=== PATIENT | male | born 1960 | race Caucasian/White ===

== ENCOUNTER 2017-01-05 08:37 | Day surgery (SDC) | payer MEDICARE, OTHER ==
[~2017-01-05 08:37] MED LIST: ACCU-CHEK AVIVA PLU1 XX; ADVAIR DISK1 INH; ALBUTEROL SUL0.083 % IN; AMLODIPINE10 MG PO; ATROVENT I0.5 MG/VIA IN; BACTRIM DS1 TAB PO; BLOOD GLUCOSE TEST S SC; BUPROPION300 MG PO; CEPHALEXIN500 MG PO; CHANTIX CONTINUI1 MG PO; CHANTIX STARTIN0.5 & PO; CHANTIX1 MG PO; CIPRO XR500 M2 PO; CLINDAMYCIN300 M1 PO; COMBIVENT RESPIMAT IN; EQ NICOTIN21 MG/24 H TD; FLEXERIL PO; GABAPENTIN300 MG PO; GLYBURIDE5 M1 PO; INSULIN SY SC; INSULIN XX; IPRATROPIU0.5 MG/3 M IN; IPRATROPIUM/ IN; KAYEXALATE15 GM/60 M PO; LANTUS100 MG/ML SC; LISINOPRIL20 MG PO; LISINOPRIL40 MG PO; LYRICA75 MG PO; METFORMIN1000 MG PO; METFORMIN500 MG PO; MONITOR SC; NAPROSYN500 MG PO; NEBULIZE1 INH; NEURONTIN800 MG PO; PERCOCET 10/31 COMBO PO; PREDNISONE10 MG PO; PREVASTATIN PO; PROAIR HFA IN; PROVENTIL0.083 % IN; QVAR80 MCG IN; SPIRIVA HANDIHALER IN; SYMBICORT1 AE1 IN; [UNRECOGNIZED DRUG - SUPPLY] XX
[2017-01-05 11:01] VITALS: BP 119/61
== END 2017-01-05 11:25 | disposition home or self-care (01) ==
LOC: ENDO 08:37 → ORM 13:00 → ENDO 13:10 → ORM 19:30
PROVIDERS: ATTEND Internal Medicine Gastroenterology
PROC: 0DB48ZX Excision of Esophagogastric Junction, Via Natural or Artificial Opening Endoscopic, Diagnostic (ICD-10-PCS; principal; 2017-01-05)
DX: R10.13 Epigastric pain (principal); I85.00 Esophageal varices without bleeding; K21.0 Gastro-esophageal reflux disease with esophagitis; K44.9 Diaphragmatic hernia without obstruction or gangrene; K22.70 Barrett's esophagus without dysplasia; K29.70 Gastritis, unspecified, without bleeding; B19.20 Unspecified viral hepatitis C without hepatic coma; I10 Essential (primary) hypertension; E11.9 Type 2 diabetes mellitus without complications; J44.9 Chronic obstructive pulmonary disease, unspecified; Z98.84 Bariatric surgery status

== ENCOUNTER 2017-04-27 05:44 | Day surgery (SDC) | payer MEDICARE, MEDICAID ==
[~2017-04-27] VITALS: Ht 177.8 cm; Wt 120.2 kg
[~2017-04-27 05:44] MED LIST changes: +LORAZEPAM0.5 MG PO; +MOTRIN800 MG PO; +OMEPRAZOLE10 MG PO; +VENTOLIN HFA IN
[2017-04-27] MEDS ORDERED: PERCOCET 10/31 COMBO PO (09:28)
[2017-04-27 11:00] VITALS: BP 135/68
== END 2017-04-27 11:20 | disposition home or self-care (01) ==
LOC: ORM 05:44
PROVIDERS: ATTEND Orthopaedic Surgery
PROC: 0LB14ZZ Excision of Right Shoulder Tendon, Percutaneous Endoscopic Approach (ICD-10-PCS; principal; 2017-04-27)
PROC: 0LS14ZZ Reposition Right Shoulder Tendon, Percutaneous Endoscopic Approach (ICD-10-PCS; 2017-04-27)
PROC: 0RNJ4ZZ Release Right Shoulder Joint, Percutaneous Endoscopic Approach (ICD-10-PCS; 2017-04-27)
DX: M75.111 Incomplete rotator cuff tear or rupture of right shoulder, not specified as traumatic (principal); S43.431A Superior glenoid labrum lesion of right shoulder, initial encounter; M94.211 Chondromalacia, right shoulder; M75.51 Bursitis of right shoulder; X58.XXXA Exposure to other specified factors, initial encounter
CPT/HCPCS: J2710

== ENCOUNTER 2017-08-21 15:10 | Inpatient (IN) | payer MEDICARE, MEDICAID ==
[~2017-08-21] VITALS: Ht 177.8 cm; Wt 119.3 kg
[2017-08-24] VITALS (7 sets, daily range): BP systolic 98–137; BP diastolic 63–76
[2017-08-24] MEDS ORDERED: VICODIN HP1 TA1 (09:29)
--- NOTE | 2017-08-24 15:30 | NUR ---
PT TO ROOM VIA BED ACCOMPANIED BY STAFF; PT DROWSY/AROUSABLE, ORIENTED X3; PT STATES PAIN /, WILL MEDICATE; DRSG TO LT SHOULDER CDI, ARM SLING IN PLACE; SCD IN PLACE; O2 2L VIA NC; PT ORIENTED TO ROOM AND CALL SYSTEM; CALL GIL WITHIN REACH; WILL CONTINUE TO MONITOR.
--- NOTE | 2017-08-24 18:28 | NUR ---
PT TOLERATED DINNER WELL; NO COMPLAINTS VOICED; CALL GIL WITHIN REACH; WILL CONTINUE TO MONITOR
--- NOTE | 2017-08-24 19:15 | NUR ---
PT SITTING UP IN BED WATCHING TV. PT IS ALERT AND ORIENTED X3. PERRLA. LUNGS ARE WHEEZING THROUGHOUT. RESP ARE EVEN AND UNLABORED. PHONED DR SAMANO. ORDER OBTAINED FOR NEB TRATMENTS. O 2L NC IN PLACE. HR REGULAR. PULSES PALPABLE THROUGHOUT. BS ACTIVE. ARM IN SLING. DRESSING TO SURGICAL SITE C/D/I. PT ASKED TO REMOVE SCDS AND STATED THAT HE IS NOT WEARING THEM. SCDS REMOVED PER PT REQUEST. INCENTIVE SPIROMETER AT BEDSIDE. PT STATES THAT HE USES IT AT TIMES. #20 RIGHT WRIST. DC IVF DUE TO PT TOLERATING PO. NO REDNESS OR EDEMA NOTED AT IV SITE. WILL CONTINUE TO MONITOR.
[2017-08-25] VITALS: BP 130/62
--- NOTE | 2017-08-25 | NUR ---
PT RESTING IN BED WATCHING TV. RESP ARE EVEN AND UNLABORED. NO DISTRESS NOTED. NO CHANGE IN PT STATUS. WILL CONTINUE TO MONITOR
--- NOTE | 2017-08-25 02:51 | NUR ---
RESPIRATORY THERAPIST IN ROOM WITH PT.
[2017-08-25 03:35] VITALS: BP 113/64
--- NOTE | 2017-08-25 04:00 | NUR ---
PT RESTING IN BED WITH EYES CLOSED. RESP ARE EVEN AND UNLABORED. NO CHANGE IN PT STATUS WILL CONTINUE TO MONITOR
[2017-08-25 06:30] LABS: HEMATOCRIT 38.9 % (39.0-50.0); HEMOGLOBIN 13.3 g/dl (14.0-18.0)
--- NOTE | 2017-08-25 07:00 | NUR ---
REPORT RECIEVED FROM MEIR BROWN. PT ASLEEP ON ENTRY. RESP EVEN AND UNLABORED. NO SIGNS OF DISTRESS NOTED. SAFETY PRECAUTIONS REINFORCED. CALL LIGHT WITHIN REACH.
[2017-08-25 08:20] VITALS: BP 140/69
[2017-08-25] MEDS ORDERED: PERCOCET1 TA4 PO (14:40)
--- NOTE | 2017-08-25 16:20 | NUR ---
Discharge instructions given. Patient verbalizes understanding of same. Discharged in stable condition via Wheelchair to Home with staff. All belongings sent with pt.
== END 2017-08-25 16:19 | disposition home or self-care (01) | DRG 483 ==
LOC: MS2 08-24 09:17
PROVIDERS: ADMIT Orthopaedic Surgery; ATTEND Internal Medicine
PROC: 0RRK00Z Replacement of Left Shoulder Joint with Reverse Ball and Socket Synthetic Substitute, Open Approach (ICD-10-PCS; principal; 2017-08-24)
DX: M19.012 Primary osteoarthritis, left shoulder (principal); E11.42 Type 2 diabetes mellitus with diabetic polyneuropathy; J44.9 Chronic obstructive pulmonary disease, unspecified; M75.102 Unspecified rotator cuff tear or rupture of left shoulder, not specified as traumatic; I10 Essential (primary) hypertension; E78.5 Hyperlipidemia, unspecified; F17.210 Nicotine dependence, cigarettes, uncomplicated; E11.65 Type 2 diabetes mellitus with hyperglycemia; Z79.84 Long term (current) use of oral hypoglycemic drugs; Z98.84 Bariatric surgery status; Z86.19 Personal history of other infectious and parasitic diseases
CPT/HCPCS: J1100; J2710

== ENCOUNTER → 2018-03-25 | Day surgery (SDC) | payer MEDICARE, MEDICAID ==
[~2018-03-25] VITALS: Ht 177.8 cm; Wt 123.4 kg
[~2018-03-25] MED LIST changes: +FENOFIBRATE145 MG PO; +GLIPIZIDE10 M2 PO; +LEVOTHYROXIN50 MC1 PO; +LYRICA100 MG PO; +OXYCODONE10 M1 PO; +PERCOCET1 TA4 PO; +TAMSULOSIN HCL0.4 MG PO; +TRICOR145 MG PO; +VICODIN HP1 TA1; +VYVANSE30 MG PO
[2018-03-25 11:55] VITALS: BP 118/66
== END | disposition home or self-care (01) ==
LOC: ORM 05:54
PROVIDERS: ATTEND Orthopaedic Surgery
PROC: 0LX70ZZ Transfer Right Hand Tendon, Open Approach (ICD-10-PCS; principal; 2018-03-25)
DX: M18.11 Unilateral primary osteoarthritis of first carpometacarpal joint, right hand (principal); J45.909 Unspecified asthma, uncomplicated; E11.9 Type 2 diabetes mellitus without complications; I10 Essential (primary) hypertension; E78.5 Hyperlipidemia, unspecified; E29.1 Testicular hypofunction; F17.210 Nicotine dependence, cigarettes, uncomplicated; Z98.84 Bariatric surgery status
CPT/HCPCS: J2710

== ENCOUNTER 2018-07-25 16:51 | Emergency (ER) | payer MEDICARE, MEDICAID ==
[~2018-07-25] VITALS: Ht 177.8 cm; Wt 122.7 kg
[2018-07-25] MEDS ORDERED: DOXYCYCL HYC100 M4 PO (17:43)
[2018-07-25] MEDS ORDERED: LANTUS100 UNIT/M SC (18:04)
[2018-07-25 18:18] VITALS: BP 128/60
== END 2018-07-25 18:18 | disposition home or self-care (01) ==
LOC: ED 16:51
DX: L73.9 Follicular disorder, unspecified (principal); I10 Essential (primary) hypertension; E11.9 Type 2 diabetes mellitus without complications; F17.200 Nicotine dependence, unspecified, uncomplicated

== ENCOUNTER 2018-11-30 11:40 | Emergency (ER) | payer MEDICARE, MEDICAID ==
[~2018-11-30] VITALS: Ht 177.8 cm; Wt 125.0 kg
[~2018-11-30 11:40] MED LIST changes: +DOXYCYCL HYC100 M4 PO; +LANTUS100 UNIT/M SC
[2018-11-30 13:32] LABS: HEMATOCRIT 54.6 % (39.0-50.0); HEMOGLOBIN 16.7 g/dl (14.0-18.0); IMMATURE GRANULOCYTES 0.6 % (0.0-5.0); MEAN CELL VOLUME 83.4 fL CALC (80.0-100.0); MEAN CORPUSCULAR HGB 25.5 pG CALC (26.0-32.0); MEAN CORPUSCULAR HGB CONC 30.6 g/L CALC (32.0-36.0); NEUT# 11.01 thou/uL (1.82-7.42); RED BLOOD COUNT 6.55 mill/uL (4.70-6.10); RED CELL DISTRI WIDTH 16.9 % (11.5-15.5)
[2018-11-30 14:03] LABS: ALBUMIN 4.2 g/dL (3.2-5.0); ALKALINE PHOSPHATASE 46 u/l (38-126); ANION GAP 18 (6-22 (CALC)); BILIRUBIN, TOTAL 0.6 mg/dL (0.0-1.4); BUN 15 mg/dL (9-20); BUN/CREATININE RATIO 14 (12-20 (CALC)); CARBON DIOXIDE 25 mmol/l (22-30); CHLORIDE 97 mmol/l (95-108); GFR > 60 ML/MIN (>=60 (CALC)); GFR FOR AFR.AMER. > 60 ML/MIN (>=60 (CALC)); POTASSIUM 4.8 mmol/l (3.5-5.1); SGOT/AST 36 u/l (17-59); SODIUM 134 mmol/l (137-146); TOTAL PROTEIN 7.7 g/dL (6.3-8.2)
[2018-11-30 14:15] LABS: MYOGLOBIN 96 ng/mL (0 - 121)
[2018-11-30] MEDS ORDERED: MEDDOSEPAK PO ×2 (14:55)
[2018-11-30] MEDS ORDERED: ZPAK PO ×2 (14:55)
[2018-11-30 15:12] VITALS: BP 116/69
== END 2018-11-30 15:12 | disposition left against medical advice (07) ==
LOC: ED 11:40
PROVIDERS: Emergency Medicine
DX: J44.1 Chronic obstructive pulmonary disease with (acute) exacerbation (principal); I49.9 Cardiac arrhythmia, unspecified; I10 Essential (primary) hypertension; E11.9 Type 2 diabetes mellitus without complications; F17.210 Nicotine dependence, cigarettes, uncomplicated; Z91.19 Patient's noncompliance with other medical treatment and regimen; R05 Cough; R06.02 Shortness of breath; J02.9 Acute pharyngitis, unspecified

== ENCOUNTER 2020-02-15 | Emergency (ER) | payer MEDICARE, MEDICAID ==
[~2020-02-15] MED LIST changes: +MEDDOSEPAK PO; +ZPAK PO
[2020-02-15] MEDS ORDERED: PERCOCET1 TAB PO (16:27)
[2020-02-15] MEDS ORDERED: DILTIAZEM240 M1 PO (16:46)
[2020-02-15] MEDS ORDERED: ELIQUIS5 MG PO (16:46)
[2020-02-15] MEDS ORDERED: BUPROPN HCL300 MG PO (16:48)
[2020-02-15] MEDS ORDERED: EFFER-K25 MEQ PO (16:49)
[2020-02-15] MEDS ORDERED: FUROSEMIDE20 MG PO (16:49)
[2020-02-15] MEDS ORDERED: HUMALOG100 MG/ML (16:51)
== END 2020-02-15 17:54 | disposition home or self-care (01) ==
DX: S40.012A Contusion of left shoulder, initial encounter (principal); S50.01XA Contusion of right elbow, initial encounter; J43.9 Emphysema, unspecified; I10 Essential (primary) hypertension; E11.9 Type 2 diabetes mellitus without complications; I48.91 Unspecified atrial fibrillation; F17.210 Nicotine dependence, cigarettes, uncomplicated; W17.89XA Other fall from one level to another, initial encounter; Y93.89 Activity, other specified; Y92.009 Unspecified place in unspecified non-institutional (private) residence as the place of occurrence of the external cause; Z79.4 Long term (current) use of insulin

== ENCOUNTER 2020-02-25 15:28 | Emergency (ER) | payer MEDICARE, MEDICAID ==
[~2020-02-25 15:28] MED LIST changes: +BUPROPN HCL300 MG PO; +DILTIAZEM240 M1 PO; +EFFER-K25 MEQ PO; +ELIQUIS5 MG PO; +FUROSEMIDE20 MG PO; +HUMALOG100 MG/ML; +PERCOCET1 TAB PO
[2020-02-25 16:24] LABS: IMMATURE GRANULOCYTES 0.5 % (0.0-5.0); MEAN CELL VOLUME 82.2 fL CALC (80.0-100.0); MEAN CORPUSCULAR HGB 23.2 pG CALC (26.0-32.0); MEAN CORPUSCULAR HGB CONC 28.2 g/dL CAL (32.0-36.0); NEUT# 6.26 thou/uL (1.82-7.42); RED BLOOD COUNT 5.57 mill/uL (4.70-6.10); RED CELL DISTRI WIDTH 18.4 % (11.5-15.5)
[2020-02-25 16:25] LABS: HEMATOCRIT 45.8 % (39.0-50.0); HEMOGLOBIN 12.9 g/dl (14.0-18.0)
[2020-02-25 16:42] LABS: ALBUMIN 3.5 g/dL (3.2-5.0); ALKALINE PHOSPHATASE 37 u/l (38-126); BILIRUBIN, TOTAL 0.5 mg/dL (0.0-1.4); BUN 25 mg/dL (9-20); BUN/CREATININE RATIO 17 (12-20 (CALC)); CHLORIDE 99 mmol/l (95-108); CREATININE 1.4 mg/dL (0.7-1.3); GFR 52 ML/MIN (>=60 (CALC)); GFR FOR AFR.AMER. > 60 ML/MIN (>=60 (CALC)); SGOT/AST 56 u/l (17-59); SODIUM 135 mmol/l (137-146); TOTAL PROTEIN 6.5 g/dL (6.3-8.2)
[2020-02-25 16:56] LABS: ANION GAP 10 (6-22 (CALC)); CARBON DIOXIDE 31 mmol/l (22-30); POTASSIUM 5.3 mmol/l (3.5-5.1)
[2020-02-25] MEDS ORDERED: DOXYCYC MONO100 M2 PO (17:01)
[2020-02-25] MEDS ORDERED: PREDNISONE50 MG PO (17:01)
[2020-02-25 17:11] VITALS: BP 100/72
== END 2020-02-25 17:22 | disposition left against medical advice (07) ==
LOC: ED 15:28
PROVIDERS: Family Medicine
PROC: 0H9BXZZ Drainage of Right Upper Arm Skin, External Approach (ICD-10-PCS; principal; 2020-02-25)
DX: L02.413 Cutaneous abscess of right upper limb (principal); J43.9 Emphysema, unspecified; I10 Essential (primary) hypertension; E11.9 Type 2 diabetes mellitus without complications; I48.91 Unspecified atrial fibrillation; F17.200 Nicotine dependence, unspecified, uncomplicated; Z79.4 Long term (current) use of insulin; Z91.19 Patient's noncompliance with other medical treatment and regimen; Z20.828 Contact with and (suspected) exposure to other viral communicable diseases

== ENCOUNTER 2020-02-27 13:05 | Emergency (ER) | payer MEDICARE, MEDICAID ==
[~2020-02-27 13:05] MED LIST changes: +DOXYCYC MONO100 M2 PO; +PREDNISONE50 MG PO
[2020-02-27 13:33] VITALS: BP 169/77
== END 2020-02-27 13:40 | disposition home or self-care (01) ==
LOC: ED 13:05
DX: Z48.01 Encounter for change or removal of surgical wound dressing (principal); E11.9 Type 2 diabetes mellitus without complications; I10 Essential (primary) hypertension; J43.9 Emphysema, unspecified; I48.91 Unspecified atrial fibrillation; Z79.4 Long term (current) use of insulin

== ENCOUNTER 2020-02-29 14:30 | Emergency (ER) | payer MEDICARE, MEDICAID ==
[2020-02-29 15:17] VITALS: BP 164/77
== END 2020-02-29 15:21 | disposition home or self-care (01) ==
LOC: ED 14:30
DX: Z48.01 Encounter for change or removal of surgical wound dressing (principal); I10 Essential (primary) hypertension; E11.9 Type 2 diabetes mellitus without complications; J43.9 Emphysema, unspecified; I48.91 Unspecified atrial fibrillation; F17.210 Nicotine dependence, cigarettes, uncomplicated; Z79.4 Long term (current) use of insulin

== ENCOUNTER 2020-03-02 15:09 | Emergency (ER) | payer MEDICARE, MEDICAID ==
[2020-03-02 15:38] VITALS: BP 118/75
== END 2020-03-02 15:39 | disposition home or self-care (01) ==
LOC: ED 15:09
DX: Z48.01 Encounter for change or removal of surgical wound dressing (principal); I10 Essential (primary) hypertension; J43.9 Emphysema, unspecified; I48.91 Unspecified atrial fibrillation; E11.9 Type 2 diabetes mellitus without complications; Z79.4 Long term (current) use of insulin; F17.210 Nicotine dependence, cigarettes, uncomplicated

== ENCOUNTER 2020-03-29 10:35 | Emergency (ER) | payer MEDICARE, MEDICAID ==
[~2020-03-29] VITALS: Ht 177.8 cm; Wt 137.0 kg
[2020-03-29 12:00] VITALS: BP 102/66
== END 2020-03-29 12:00 | disposition home or self-care (01) ==
LOC: ED 10:35
DX: S60.052A Contusion of left little finger without damage to nail, initial encounter (principal); S60.222A Contusion of left hand, initial encounter; I10 Essential (primary) hypertension; E11.9 Type 2 diabetes mellitus without complications; J43.9 Emphysema, unspecified; I48.91 Unspecified atrial fibrillation; F17.210 Nicotine dependence, cigarettes, uncomplicated; W18.39XA Other fall on same level, initial encounter; Y93.89 Activity, other specified; Y92.002 Bathroom of unspecified non-institutional (private) residence as the place of occurrence of the external cause; Z99.81 Dependence on supplemental oxygen; Z79.01 Long term (current) use of anticoagulants; Z79.4 Long term (current) use of insulin

== ENCOUNTER 2020-12-10 18:05 | Emergency (ER) | payer MEDICARE, MEDICAID ==
[~2020-12-10] VITALS: Ht 177.8 cm; Wt 118.0 kg
[2020-12-10] MEDS ORDERED: ORPHENADRINE100 MG PO (21:42)
[2020-12-10] MEDS ORDERED: PERCOCET 5/325M1 TAB PO (21:42)
[2020-12-10 21:46] VITALS: BP 110/78
== END 2020-12-10 21:46 | disposition home or self-care (01) ==
LOC: ED 18:05
DX: M54.2 Cervicalgia (principal); M54.6 Pain in thoracic spine; I10 Essential (primary) hypertension; E11.9 Type 2 diabetes mellitus without complications; J43.9 Emphysema, unspecified; I48.91 Unspecified atrial fibrillation; F17.200 Nicotine dependence, unspecified, uncomplicated; Z79.4 Long term (current) use of insulin

== ENCOUNTER 2022-05-30 20:51 | Emergency (ER) | payer MEDICARE, MEDICAID ==
[~2022-05-30] VITALS: Ht 177.8 cm; Wt 113.0 kg
[~2022-05-30 20:51] MED LIST changes: -HUMALOG100 MG/ML; +HUMALOG100 MG/ML SC; -OMEPRAZOLE10 MG PO; +OMEPRAZOLE20 MG PO; +ORPHENADRINE100 MG PO; +PERCOCET 5/325M1 TAB PO
[2022-05-30 21:08] VITALS: BP 137/76
[2022-05-30 21:15] VITALS: BP 130/72
[2022-05-30 21:30] VITALS: BP 134/82
[2022-05-30 21:58] LABS: IMMATURE GRANULOCYTES 0.4 % (0.0-5.0); MEAN CELL VOLUME 79.5 fL CALC (80.0-100.0); MEAN CORPUSCULAR HGB 24.6 pG CALC (26.0-32.0); MEAN CORPUSCULAR HGB CONC 30.9 g/dL CAL (32.0-36.0); NEUT# 9.19 thou/uL (1.82-7.42); RED BLOOD COUNT 7.37 mill/uL (4.70-6.10)
[2022-05-30 21:59] LABS: HEMATOCRIT 58.6 % (39.0-50.0); HEMOGLOBIN 18.1 g/dl (14.0-18.0)
[2022-05-30 22:10] LABS: ALBUMIN 4.1 g/dL (3.2-5.0); ALKALINE PHOSPHATASE 71 u/l (38-126); ANION GAP 14 (6-22 (CALC)); BUN 23 mg/dL (8-23); BUN/CREATININE RATIO 23 (12-20 (CALC)); CARBON DIOXIDE 29 mmol/l (22-30); CHLORIDE 101 mmol/l (95-108); GFR FOR AFR.AMER. > 60 ML/MIN (>=60 (CALC)); GFR OTHER RACES > 60 ML/MIN (>=60 (CALC)); POTASSIUM 4.8 mmol/l (3.5-5.1); SGOT/AST 30 u/l (19-48); SODIUM 140 mmol/l (137-146)
[2022-05-30 22:13] LABS: D-DIMER 1.8 mg/L (0.19-0.60)
[2022-05-30 22:16] LABS: BILIRUBIN, TOTAL 0.8 mg/dL (0.0-1.4); TOTAL PROTEIN 9.3 g/dL (6.3-8.2)
[2022-05-30 22:20] LABS: PROTHROMBIN TIME 12.4 SECONDS (9.0-12.5)
[2022-05-30 22:21] LABS: INTERNATIONAL NORMALIZED RATIO 1.3 RATIO (0.7-1.3); MYOGLOBIN 78 ng/mL (0 - 121)
[2022-05-30 22:58] LABS: URINE BLOOD DIPSTICK NEGATIVE (NEGATIVE); URINE GLUCOSE - DIPSTICK 500 mg/dL (NEGATIVE); URINE KETONE NEGATIVE (NEGATIVE); URINE LEUK ESTERASE NEGATIVE (NEGATIVE); URINE PH 5.5 (4.5-8.0); URINE PROTEIN - DIPSTICK 30 mg/dL (NEG-TRACE); URINE SPECIFIC GRAVITY >=1.030
[2022-05-30 23:01] LABS: URINE BILIRUBIN - DIPSTICK MODERATE (NEGATIVE); URINE COLOR AMBER; URINE NITRITE - DIPSTICK NEGATIVE (Negative)
[2022-05-30] MEDS ORDERED: PREDNISONE50 MG PO (23:41)
[2022-05-30] MEDS ORDERED: VIBRAMYCIN100 M2 PO (23:41)
[2022-05-30 23:46] VITALS: BP 134/82
== END 2022-05-30 23:55 | disposition home or self-care (01) ==
LOC: ED 20:51 → ED-I 23:30 → ED 23:55
PROVIDERS: Family Medicine
DX: J20.9 Acute bronchitis, unspecified (principal); J43.9 Emphysema, unspecified; I10 Essential (primary) hypertension; E11.9 Type 2 diabetes mellitus without complications; I48.91 Unspecified atrial fibrillation; F17.210 Nicotine dependence, cigarettes, uncomplicated; Z79.4 Long term (current) use of insulin; Z20.822 Contact with and (suspected) exposure to COVID-19
CPT/HCPCS: Q9967

== ENCOUNTER 2022-06-04 14:51 | Observation (INO) | payer MEDICARE, MEDICAID ==
[~2022-06-04] VITALS: Ht 177.8 cm; Wt 96.4 kg
[~2022-06-04 14:51] MED LIST changes: +VIBRAMYCIN100 M2 PO
--- NOTE | 2022-06-04 15:01 | NUR ---
PATIENT BROUGHT IN VIA EMS AND TRANSFERRED TO [facility]. MD MET PATIENT BEDSIDE UPON ARRIVAL.
[2022-06-04] MEDS ORDERED: SPIRIVA HANDIH18 MCG IN (15:27)
[2022-06-04] MEDS ORDERED: PROAIR HFA IN (15:29)
[2022-06-04] MEDS ORDERED: LANTUS100 UNIT SC (15:30)
[2022-06-04] MEDS ORDERED: TAMSULOSIN HCL0.4 MG PO (15:31)
[2022-06-04 15:39] LABS: IMMATURE GRANULOCYTES 0.3 % (0.0-5.0); MEAN CORPUSCULAR HGB 24.5 pG CALC (26.0-32.0); MEAN CORPUSCULAR HGB CONC 30.6 g/dL CAL (32.0-36.0); NEUT# 4.96 thou/uL (1.82-7.42); RED BLOOD COUNT 6.2 mill/uL (4.70-6.10); RED CELL DISTRI WIDTH 18.4 % (11.5-15.5)
[2022-06-04 15:41] LABS: HEMATOCRIT 49.6 % (39.0-50.0); HEMOGLOBIN 15.2 g/dl (14.0-18.0)
[2022-06-04 15:47] LABS: ALBUMIN 3.5 g/dL (3.2-5.0); ALKALINE PHOSPHATASE 63 u/l (38-126); BILIRUBIN, TOTAL 0.5 mg/dL (0.0-1.4); BUN 18 mg/dL (8-23); BUN/CREATININE RATIO 22 (12-20 (CALC)); CARBON DIOXIDE 31 mmol/l (22-30); CHLORIDE 98 mmol/l (95-108); CREATININE 0.8 mg/dL (0.7-1.3); GFR FOR AFR.AMER. > 60 ML/MIN (>=60 (CALC)); GFR OTHER RACES > 60 ML/MIN (>=60 (CALC)); SGOT/AST 25 u/l (19-48); SODIUM 137 mmol/l (137-146)
[2022-06-04 15:56] LABS: ANION GAP 12 (6-22 (CALC)); POTASSIUM 3.8 mmol/l (3.5-5.1); TOTAL PROTEIN 7.4 g/dL (6.3-8.2)
--- NOTE | 2022-06-04 16:00 | NUR ---
Reassessment of patient completed. No distress noted.
[2022-06-04] MEDS ORDERED: LYRICA150 M1 PO (16:16)
[2022-06-04] MEDS ORDERED: FINASTERIDE5 MG PO (16:17)
[2022-06-04] MEDS ORDERED: ELIQUIS5 MG PO (16:19)
[2022-06-04] MEDS ORDERED: BUMETANIDE1 MG PO (16:21)
[2022-06-04] MEDS ORDERED: LIPITOR10 M1 PO (16:22)
[2022-06-04] MEDS ORDERED: JARDIANCE25 MG PO (16:23)
[2022-06-04 16:28] LABS: URINE BILIRUBIN - DIPSTICK NEGATIVE (NEGATIVE); URINE BLOOD DIPSTICK TRACE-INTACT (NEGATIVE); URINE COLOR YELLOW; URINE GLUCOSE - DIPSTICK >=1000 mg/dL (NEGATIVE); URINE KETONE NEGATIVE (NEGATIVE); URINE LEUK ESTERASE NEGATIVE (NEGATIVE); URINE PROTEIN - DIPSTICK NEGATIVE (NEG-TRACE); URINE UROBILINOGEN - DIPSTICK 0.2 E.U./dL (0.2)
[2022-06-04 16:30] LABS: URINE NITRITE - DIPSTICK NEGATIVE (Negative)
[2022-06-04] MEDS ORDERED: OXYCODONE15 MG PO (16:40)
[2022-06-04] MEDS ORDERED: TIZANIDINE HCL4 M1 PO (16:41)
[2022-06-04] MEDS ORDERED: CELEBREX200 M1 PO (16:44)
[2022-06-04] MEDS ORDERED: METOLAZONE5 MG PO (16:44)
[2022-06-04] MEDS ORDERED: WELLBUTRIN XL150 MG PO (16:45)
--- NOTE | 2022-06-04 17:05 | NUR ---
Reassessment of patient completed. No distress noted.
--- NOTE | 2022-06-04 18:23 | NUR ---
Reassessment of patient completed. No distress noted.
--- NOTE | 2022-06-04 18:37 | NUR ---
Admission Note Report Given to: RN. FERNANDO Transported by: Wheelchair X Stretcher Transported with: X Nurse Transporter X Patent IV X O2 X Functional Skills Tutor Location: ICU X MS2 BESIDE REPORT GIVENTO NURSE. PATIENT TOLIETED ON ARRIVAL AND O2 ON AT 4LPM. DAUGHTER AT BEDSIDE.
[2022-06-04 18:38] VITALS: BP 115/68
--- NOTE | 2022-06-04 18:47 | NUR ---
PT ARRIVED ON UNIT @ 1820 TRANSPORTED VIA STRETCHER BY ED STAFF LIYAH. ALERT AND ORIENTED X 3, RESTLESS LEGS STATING HE HAS A BURNING PAIN BUT DOES NOT HAVE NEOROPATHY HE KNOWS WHAT NEUROPATHY IS. ORIENTED TO ROOM AND CALL GIL, INFORMED/EDUCATED ON FALL PRECAUTION, CALL GIL IN REACH, BED ALARM ACTIVATED. DAUGHTER IN ROON AT THIS TIME AND STATES PT IS NOT USUALLY CONFUSED AND LETHARGIC HE APPEARS NOW AND SHE BELIEVES HE MAY HAVE TAKEN TOO MUCH MEDICATION BUT HAS NO PROOF. DAUGHTER STATES PT LIVES WITH ANOTHER ELDERLY COUPLE SHARING DWELLING, WILL DELIVER PT TO NIGHT RN TO FOLLOW UP WITH CARE.
[2022-06-04 18:54] VITALS: BP 115/68
--- NOTE | 2022-06-04 21:20 | NUR ---
CORE CUTTER REPORTED THAT THE PT ASKED FOR ICECREAM. BLOOD GLUCOSE WAS CHECKED @301 PER GLUCOMETER. PM MEDICATIONS AND INSULIN ADMINISTERED AT THIS TIME. WHILE I WAS IN THE ROOM, HE WAS VERY GROGGY, AWOKE TO MY VOICE LOUDLY OR TOUCH, WOULD BARELY OPEN HIS EYES AND IMMEDIATELY RETURN TO SLEEP. I ASKED HIM WHY HE IS SO GROGGY, HE STATED "I HAVEN'T SLEPT IN 38HRS." WHEN ASKED WHY HE REPLIED "BECAUSE I FELT LIKE CRAP." I ASKED ABOUT HIS SYMPTOMS, HER REPORTED "SOB" PREVIOUSLY ON ASSESSMENT/ADMISSION HE DENIED BEING SOB PRIOR TO HOSPITAL ARRIVAL OR IN THE LAST WEEK. WHEN QUESTIONED, PT DID NOT PROVIDE RESPONSE. LOC TO SELF AND CIRCUMSTANCE, BUT SEEMS NON-COMPLIANT WITH ATTEMPTS OF CARE.
--- NOTE | 2022-06-04 22:15 | NUR ---
PT AWAKE AND AGITATED WANTING TO LEAVE IF HE CANNOT HAVE HIS "PAIN PILL AND ICECREAM". I RE-EXPLAINED TO HIM ABOUT HOW HE WAS APPEARING GROGGY AND REFUSING TO OPEN HIS EYES AND ANSWER MY QUESTIONS. I INFORMED HIM THAT I CANNOT MEDICATE W/NARCOTICS WHEN HE IS LETHARGIC OR WILL NOT OPEN HIS EYES AND ANSWER MEDICAL QUESTIONS WHEN NEEDED. HE OPENED HIS EYES REALLY BIG AND SAID "WELL THEY'RE OPEN NOW!" SPEECH IS CLEAR, PT AMBULATED WITH STANDBY ASSISTANCE TO RESTROOM AND BACK TO THE BED. I ALSO EDUCATED HIM ON THERAPEUTIC DIET, HE SAID "I JUST WANT A PAIN PILL AND SOME ICECREAM, I HAVE BEEN ON THESE PILLS FOR 4 YEARS AND WITHOUT THEM I START JERKING AND GETTING REAL BAD." PT HANDS ARE TREMORING AND HE IS JERKING HIS FEET WHEN IN THE BED. I ASKED HIM AGAIN IF HE DRINKS ALCOHOL OR TAKES ANY RECREATIONAL DRUGS ON A DAILY BASIS, EXPLAINING TO HIM THAT IT HELPS US TO TREAT HIM WITH THE RIGHT MEDICATIONS IF WE KNOW THIS IN ORDER TO HELP KEEP HIM FROM HAVING FURTHER TROUBLE, HE DENIED ALL. PT MEDICATED WITH PAIN MEDICATION AND PROVIDED ICECREAM. ED ALSO CALLED TO REPORT TELEMETRY OFF, ALL PADS REPLACED. PT INSISTED ON SITTING ON THE SIDE OF THE BED AT THIS TIME, SO STANDING BED ALARM WAS PLACED ON FOR PRECAUTION MEASURES. CALL LIGHT ALSO W/IN REACH AND HE WAS REMINDED TO CALL PRIOR TO GETTING UP, AGREED.
[2022-06-05 00:25] VITALS: BP 117/55
--- NOTE | 2022-06-05 00:53 | NUR ---
PT SET BED ALARM OFF, STATED HE DID NOT NEED TO USE RESTROOM OR GET UP, REPORTS THAT HE WAS ONLY TURNING OVER IN THE BED, PT FOUND SITTING ON THE SIDE OF THE BED WITH FEET ON THE FLOOR, WE EXPLAINED THAT WHEN HE PUTS HIS FEET OUT OF THE BED TOWARD THE FLOOR, THE ALARM WILL SOUND. HE REPLIED, "I WILL BE SURE TO JUMP UP QUICKER AND RUN THEN." DENIES MULTIPLE OFFERES OF ASSISTANCE USING URINAL AT BEDSIDE OR AMBULATING TO RESTROOM. PT BACK IN BED WITH ALARM ON, ROOM IS CLOSE TO BASE BRANDER STATION. CALL LIGHT AT SIDE AND HE WAS ENCOURAGED TO CALL.
[2022-06-05 03:52] VITALS: BP 126/69
--- NOTE | 2022-06-05 04:26 | NUR ---
V/S ASSESSED STABLE. OXYGEN SAT 89%, OXYGEN WAS ON 3LNC. OXYGEN WAS SET AT 4LNC PER HOME DEPENDENT, SAT LEVELS UP TO 92%. PT IS VERY LETHARGIC AND BREATHING OUT OF HIS MOUTH. ATTEMPTS TO GET HIM TO ROUSE AND FOLLOW OUR INSTRUCTION OF DEEP BREATHING THROUGH NARES WERE UNSUCCESSFUL. HE ROUSES AND SPEAKS "WHAT!" BUT WILL NOT OPEN HIS EYES OR FOLLOW INSTRUCTIONS. VERY GROGGY AT THIS TIME.
[2022-06-05 05:18] LABS: HEMATOCRIT 52.8 % (39.0-50.0); HEMOGLOBIN 16.7 g/dl (14.0-18.0); IMMATURE GRANULOCYTES 0.3 % (0.0-5.0); MEAN CORPUSCULAR HGB 24.7 pG CALC (26.0-32.0); MEAN CORPUSCULAR HGB CONC 31.6 g/dL CAL (32.0-36.0); NEUT# 6.03 thou/uL (1.82-7.42); RED BLOOD COUNT 6.77 mill/uL (4.70-6.10); RED CELL DISTRI WIDTH 18.7 % (11.5-15.5)
[2022-06-05 05:36] LABS: ALKALINE PHOSPHATASE 72 u/l (38-126); BILIRUBIN, TOTAL 0.5 mg/dL (0.0-1.4); BUN 25 mg/dL (8-23); BUN/CREATININE RATIO 29 (12-20 (CALC)); CARBON DIOXIDE 32 mmol/l (22-30); CHLORIDE 95 mmol/l (95-108); CREATININE 0.9 mg/dL (0.7-1.3); GFR FOR AFR.AMER. > 60 ML/MIN (>=60 (CALC)); GFR OTHER RACES > 60 ML/MIN (>=60 (CALC)); SGOT/AST 21 u/l (19-48); SODIUM 140 mmol/l (137-146)
[2022-06-05 05:39] LABS: ANION GAP 18 (6-22 (CALC)); MAGNESIUM 2.2 mg/dL (1.6-2.3)
[2022-06-05 05:42] VITALS: BP 130/66
--- NOTE | 2022-06-05 05:43 | NUR ---
pt too lethargic to take po meds. refused to wake up, sternal rub, he opened eyes and said, "oow, what?" immediately returns to sleep. v/s stable. oxygen NC 4L as home dependent.
--- NOTE | 2022-06-05 06:55 | NUR ---
RECEIVED REPORT FROM MEIR OMALLEY.
--- NOTE | 2022-06-05 07:19 | NUR ---
Patient is screened for PT intervention and would benefit from PT consult if medical agrees
[2022-06-05 08:10] VITALS: BP 105/61
--- NOTE | 2022-06-05 08:10 | NUR ---
PT IN BED WAKING UP: A&O X3. EVEN AND UNLABORED RESPIRATIONS: DIMINISHED LUNG SOUNDS ON BASES. O2 @ 4L HUMIDIFIED VIA NASAL CANNULA IN PLACE. ACTIVE BOWEL SOUNDS X4 QUADRANTS. IV SITE HEALTHY AND PATENT. SAFETY PRECAUTIONS IN PLACE WITH CALL LIGHT IN REACH.
[2022-06-05] MEDS ORDERED: SYMBICORT1 AE1 IN (10:12)
[2022-06-05] MEDS ORDERED: DOXYCYC MONO100 M3 PO (10:13)
[2022-06-05] MEDS ORDERED: TESTOST CYP200 MG/ML IM (10:13)
[2022-06-05 10:15] VITALS: BP 95/57
[2022-06-05] MEDS ORDERED: DIGOX250 MCG PO (10:20)
--- NOTE | 2022-06-05 12:30 | NUR ---
PT RESTING WITH EYES CLOSED. NO DISTRESS OR PAIN NOTED. O2 @ 4L IN PLACE VIA NASAL CANNULA. SAFETY PRECAUTIONS IN PLACE WITH CALL LIGHT IN REACH.
[2022-06-05] MEDS ORDERED: ZPAK PO (13:05)
[2022-06-05] MEDS ORDERED: MEDDOSEPAK PO (13:06)
--- NOTE | 2022-06-05 14:26 | NUR ---
PT EDUCATED ON DC INTRUCTIONS; PT SHOWED UNDERSTANDING. REMOVED IV #20 LEFT AC, CASTHETER INTACT UPON REMOVAL, PT TOLERATED WELL. REMOVED TELEMETRY BOX, ER NOTIFIED OF SAME.
--- NOTE | 2022-06-05 14:48 | NUR ---
PT LEFT @ 1441. Discharge instructions given. Patient verbalizes understanding of same. Discharged in stable condition via Wheelchair to Home with staff. All belongings sent with pt.
== END 2022-06-05 16:20 | disposition home or self-care (01) ==
LOC: ED 14:51 → ED-I 15:43 → ED 15:43 → ED-I 16:15 → ED 16:34 → MS2 16:35
PROVIDERS: Family Medicine; ADMIT Internal Medicine; ATTEND Internal Medicine
DX: J44.1 Chronic obstructive pulmonary disease with (acute) exacerbation (principal); I11.0 Hypertensive heart disease with heart failure; I50.9 Heart failure, unspecified; E11.65 Type 2 diabetes mellitus with hyperglycemia; E11.42 Type 2 diabetes mellitus with diabetic polyneuropathy; I48.91 Unspecified atrial fibrillation; E78.5 Hyperlipidemia, unspecified; N40.0 Benign prostatic hyperplasia without lower urinary tract symptoms; M15.9 Polyosteoarthritis, unspecified; F17.200 Nicotine dependence, unspecified, uncomplicated; T38.3X6A Underdosing of insulin and oral hypoglycemic [antidiabetic] drugs, initial encounter; Z91.128 Patient's intentional underdosing of medication regimen for other reason; Z99.81 Dependence on supplemental oxygen; Z79.4 Long term (current) use of insulin; Z20.822 Contact with and (suspected) exposure to COVID-19

== ENCOUNTER 2022-10-26 11:51 | Emergency (ER) | payer MEDICARE, MEDICAID ==
[2022-10-26] VITALS (7 sets, daily range): BP systolic 117–131; BP diastolic 63–71
[~2022-10-26] VITALS: Ht 177.8 cm; Wt 100.0 kg
[~2022-10-26 11:51] MED LIST changes: +BUMETANIDE1 MG PO; +CELEBREX200 M1 PO; +DIGOX250 MCG PO; +DOXYCYC MONO100 M3 PO; +FINASTERIDE5 MG PO; +JARDIANCE25 MG PO; +LANTUS100 UNIT SC; +LIPITOR10 M1 PO; +LYRICA150 M1 PO; +METOLAZONE5 MG PO; +OXYCODONE15 MG PO; +SPIRIVA HANDIH18 MCG IN; +TESTOST CYP200 MG/ML IM; +TIZANIDINE HCL4 M1 PO; +WELLBUTRIN XL150 MG PO
[2022-10-26] MEDS ORDERED: TOBRADEX OU ×2 (13:42→13:58)
== END 2022-10-26 14:04 | disposition home or self-care (01) ==
LOC: ED 11:51
DX: H10.9 Unspecified conjunctivitis (principal); I10 Essential (primary) hypertension; E11.9 Type 2 diabetes mellitus without complications; I48.91 Unspecified atrial fibrillation; J43.9 Emphysema, unspecified; F17.210 Nicotine dependence, cigarettes, uncomplicated; Z79.4 Long term (current) use of insulin

== ENCOUNTER 2023-10-15 15:43 | Emergency (ER) | payer MEDICARE, MEDICAID ==
[~2023-10-15] VITALS: Ht 177.8 cm; Wt 97.0 kg
[~2023-10-15 15:43] MED LIST changes: +TOBRADEX OU
[2023-10-15] MEDS ORDERED: MAXITROL 0.1 %1 SUS OU (16:22)
[2023-10-15 16:26] VITALS: BP 135/70
== END 2023-10-15 16:30 | disposition home or self-care (01) ==
LOC: ED 15:43
DX: H10.9 Unspecified conjunctivitis (principal); E11.9 Type 2 diabetes mellitus without complications; I10 Essential (primary) hypertension; J43.9 Emphysema, unspecified; I48.91 Unspecified atrial fibrillation; F17.200 Nicotine dependence, unspecified, uncomplicated; Z79.4 Long term (current) use of insulin